=== PATIENT | female | born 1995 | race Caucasian/White ===

== ENCOUNTER 2018-05-28 11:00 | Outpatient (CLI) | payer MEDICAID ==
[2018-05-28] VITALS (9 sets, daily range): BP systolic 112–132; BP diastolic 60–72
[~2018-05-28] VITALS: Ht 156.2 cm; Wt 83.0 kg
--- NOTE | 2018-05-28 11:00 | NUR ---
VA LUCIA presented to unit via amulatory from home, accompanied by spouse, with c/o BACK PAIN AND ABD TIGHTENING. VA LUCIA weighed, gowned, voided, and to bed. EFHM and TOCO applied, VS taken. VA LUCIA oriented to bed controls, call light, TV, heat, and A/C controls.
[2018-05-28] MEDS ORDERED: PREN1TAB79 PO (11:20)
--- NOTE | 2018-05-28 11:30 | NUR ---
REPORT GIVEN TO DR MOORE AT THIS TIME. PT CO, SVE, NEGATIVE NITRAZINE, NO FLUID NOTED. PT REPORTS RASH ALL OVER BODY. PT STATES COULD BE ACNE-SHE HAS HX OF ACNE BREAKOUTS SIMILAR TO THIS. PT STATES SHE HAS HAD BV WHICH HAD BEEN TREATED. URINE DIP RESULTS. ORDERS RECEIVED TO START IV AND GIVE 1 L LR AT THIS TIME.
[2018-05-28] MEDS ORDERED: LACTATED RINGERS 1,000 ML IV SCH ×2 (12:00→13:45)
[2018-05-28] MEDS ORDERED: FLU QUADRIvalent (5+ YOA) 2018-2019 (AFLURIA) 0.5 ML IM ONE (12:15)
--- NOTE | 2018-05-28 13:15 | NUR ---
Report received from LYDIA Hammond. care assumed of pt.
--- NOTE | 2018-05-28 13:29 | NUR ---
was called with pt status update. new orders received.
--- NOTE | 2018-05-28 13:38 | NUR ---
2nd bag of LR infusing per Dr's orders. pt reports decrease in pain "with sitting up". pt sitting in low fowlers position. offered IV pain medication, refused @ time. pt smiling and talking with s/o. will cont to monitor.
[2018-05-28] MEDS ORDERED: fentaNYL INJECTION 100 MCG/2 ML AMP IVP SCH (13:45)
--- NOTE | 2018-05-28 14:47 | NUR ---
was called with SVE and monitor tracing update. will cont to monitor until 1800, recheck & call MD with update.
--- NOTE | 2018-05-28 17:32 | NUR ---
SVE per this RN. no change from previous exams.
--- NOTE | 2018-05-28 17:34 | NUR ---
was called. no answer on cell phone. voice mail left.
--- NOTE | 2018-05-28 17:38 | NUR ---
returned phone call. update given r/t pt's c/o's "pain in hip joints. feels like a knife is in my ball socket being twisted." new orders received.,
[2018-05-28] MEDS ORDERED: TERBUTALINE INJ 1 MG/ML (BRETHINE) AMP ONE (17:41)
[2018-05-28] MEDS ORDERED: TERBUTALINE INJ 1 MG/ML (BRETHINE) AMP SC ONE (17:45)
--- NOTE | 2018-05-28 17:45 | NUR ---
Brethine 0.25mg SQ given in Rt.arm. POC reviewed.
--- NOTE | 2018-05-28 18:34 | NUR ---
eating regular diet. s/o @ side.
--- NOTE | 2018-05-28 18:55 | NUR ---
was called. reviewed monitor tracing. dismissal orders received.
--- NOTE | 2018-05-28 19:08 | NUR ---
dismissal instructions given and verbalizes understanding. instructed to increased daily water intake. follow up with as scheduled. signature page signed, placed on chart. pt ambulated to private vehicle with s/o @ side.
== END 2018-05-28 19:08 | disposition home or self-care (01) ==
LOC: WSo 11:00 → LDRP 11:00 → WSo 19:08
PROVIDERS: ATTEND Family Medicine
DX: O99.89 Other specified diseases and conditions complicating pregnancy, childbirth and the puerperium (principal); M54.9 Dorsalgia, unspecified; Z3A.37 37 weeks gestation of pregnancy
CPT/HCPCS: 96361; 96372; 96374; 99214

== ENCOUNTER 2018-05-29 10:17 | Observation (INO) | payer MEDICAID ==
[~2018-05-29] VITALS: Ht 156.2 cm; Wt 83.9 kg
--- NOTE | 2018-05-29 10:12 | NUR ---
VA LUCIA presented to unit via AMBULATION from HOME, accompanied by S.O., with c/o CONTRACTION. VA LUCIA weighed, gowned, voided, and to bed. EFHM and TOCO applied, VS taken. VA LUCIA oriented to bed controls, call light, TV, heat, and A/C controls.
[~2018-05-29 10:17] MED LIST: PREN1TAB79 PO
[2018-05-29 10:25] VITALS: BP 121/73
[2018-05-29 10:51] LABS: BILIRUBIN,URINE NEGATIVE (NEGATIVE); CLARITY,URINE SLIGHTLY CLOUDY; COLOR,URINE YELLOW; GLUCOSE, URINE (UA) NEGATIVE (NEGATIVE); KETONES,URINE 2+ (NEGATIVE); LEUKOCYTE ESTERASE ,URINE NEGATIVE (NEGATIVE); NITRITE,URINE NEGATIVE (NEGATIVE); PH,URINE 6 (5-9); PROTEIN,URINE NEGATIVE (NEGATIVE); UROBILINOGEN,URINE NORMAL (NORMAL)
[2018-05-29 11:09] LABS: BACTERIA,URINE FEW /HPF; WBC,URINE 0-2 /HPF
--- NOTE | 2018-05-29 11:26 | NUR ---
DR. MOORE CALLED AND NOTIFIED OF PT ARRIVAL. NOTIFIED OF PT C/O CONT. CTX, CTX PATTERN, FHR, SVE, NITRAZINE SWAB, VAGINAL DISCHARGE, PT C/O VAGINAL BURNING AND ITCHING, OTHER ASSESSMENT FINDINGS. ORDERS REC'D.
[2018-05-29] MEDS ORDERED: NS IV 1000 ML 1,000 ML IV ONE (11:30)
[2018-05-29 12:50] LABS: BASOPHILS % (AUTO) 0 % (0-10); EOSINOPHILS # (AUTO) 0.1 10^3/uL (0.0-0.3); EOSINOPHILS % (AUTO) 2 % (0-10); HEMATOCRIT 34 % (35-52); HEMOGLOBIN 11.2 G/DL (11.5-16.0); LYMPHOCYTES % (AUTO) 30 % (12-44); MEAN CORPUSCULAR HEMOGLOBIN 30 PG (25-34); MEAN CORPUSCULAR HGB CONC 33 G/DL (32-36); MEAN CORPUSCULAR VOLUME 89 FL (80-99); MEAN PLATELET VOLUME 10.7 FL (7.4-10.4); MONOCYTES # (AUTO) 0.6 X 10^3 (0.0-1.0); MONOCYTES % (AUTO) 9 % (0-12); NEUTROPHILS % (AUTO) 59 % (42-75); PLATELET COUNT 217 10^3/uL (130-400); RED CELL DISTRIBUTION WIDTH 13.2 % (10.0-14.5); WHITE BLOOD COUNT 6.8 10^3/uL (4.3-11.0)
[2018-05-29 13:07] LABS: ALANINE AMINOTRANSFERASE 10 U/L (0-55); ALBUMIN 2.7 GM/DL (3.2-4.5); ALKALINE PHOSPHATASE 125 U/L (40-136); BILIRUBIN,TOTAL 0.3 MG/DL (0.1-1.0); BUN/CREATININE RATIO 6; CALCIUM 8.7 MG/DL (8.5-10.1); CARBON DIOXIDE 21 MMOL/L (21-32); CHLORIDE 109 MMOL/L (98-107); CREATININE SERUM 0.63 MG/DL (0.60-1.30); GFR ESTIMATED > 60; GLUCOSE 76 MG/DL (70-105); POTASSIUM 3.6 MMOL/L (3.6-5.0); SODIUM 139 MMOL/L (135-145); TOTAL PROTEIN 5.4 GM/DL (6.4-8.2)
--- NOTE | 2018-05-29 13:33 | NUR ---
Dr. Luna called and notified of lab results. Order for BPP, maintenance fluids.
[2018-05-29] MEDS ORDERED: NS IV 1000 ML 1,000 ML ONE (13:52)
[2018-05-29] MEDS: NS IV 1000 ML 1,000 ML IV SCH ×2 (13:55→22:51)
[2018-05-29 14:00] VITALS: BP 115/63
--- NOTE | 2018-05-29 14:00 | NUR ---
Dr. Luna on unit, visualizing FHR strip.
[2018-05-29] MEDS ORDERED: FLU QUADRIvalent (5+ YOA) 2018-2019 (AFLURIA) 0.5 ML IM ONE (16:45)
--- NOTE | 2018-05-29 16:50 | Diagnostic Imaging Report ---
INDICATION: Nonreactive stress test. Palacio gestation receives a normal 8 out of 8 biophysical profile. Positioning is cephalic. The placenta anterior with no abruption or previa. The amniotic fluid index is 7.6 with the largest vertical pocket of fluid measuring 3.4. IMPRESSION: 8 out of 8 biophysical profile. Dictated by: Dictated on workstation # [id number]
--- NOTE | 2018-05-29 17:45 | NUR ---
REPORT RECEIVED FORM Dennis SCHUMACHER RN. Addendum: 05/29/18 at 1846 by STEVEN CHEEMA RN FROM [facility]
--- NOTE | 2018-05-29 17:59 | NUR ---
EFM REAPPLIED AFTER SHOWER. STATES FEELING MUCH BETTER THAN YESTERDAY.
--- NOTE | 2018-05-29 19:00 | NUR ---
WATCHING TV. SPOUSE AT BEDSIDE.
[2018-05-29 19:25] VITALS: BP 107/70
[2018-05-29 21:30] VITALS: BP 111/64
[2018-05-30] VITALS: BP 115/59
[2018-05-30] MEDS ORDERED: ONDANSETRON 4 MG/2 ML (SDV) Z0FRAN IVP ONE (02:15)
[2018-05-30 02:30] VITALS: BP 109/62
[2018-05-30] MEDS: NS IV 1000 ML 1,000 ML IV SCH (06:52)
[2018-05-30 06:56] VITALS: BP 100/58
--- NOTE | 2018-05-30 07:40 | NUR ---
patient assisted up to bathroom. no s/s of distress. denies pain. Addendum: 05/30/18 at 0908 by CARLEY YOO RN wrong patient
--- NOTE | 2018-05-30 07:55 | NUR ---
at bedside. reviewing plan for d/c and home care.
[2018-05-30 08:09] VITALS: BP 114/62
--- NOTE | 2018-05-30 08:18 | History & Physical-OB ---
OB - Chief Complaint & HPI Date/Time Date of Admission: Date of Admission: May 29, 2018 at 15:30 Date seen by a Provider: May 30, 2018 Time Seen by a Provider: 08:14 Chief Complaint/History OB-Reason for Admission/Chief: contractions without cervical change Hx : 1 Expected Date of Delivery: Jun 27, 2018 Gestational Age in Weeks: 35 Gestational Age in Days: 6 Allergies and Home Medications Allergies Coded Allergies: No Known Drug Allergies (Unverified , 05/28/18) Home Medications Vit W-Ca,Fe,FA(<1 mg) 1 Each Tablet, 1 EACH PO DAILY, (Reported) Patient Home Medication List Home Medication List Reviewed: Yes OB - History Hx of Present Care: Yes Ultrasounds: Normal mid trimester US Obstetrical Complications: None Medical Complications: None Obstetrical History Hx : 1 Patient Past Medical History previously healthy Social History/Family History Recent Infectious Disease Expo: No OB - Admission Exam Physical Exam Vitals: Vital Signs 05/29/18 05/30/18 10:25 06:56 Temp 98.3 Pulse 86 Resp 18 B/P (MAP) 100/58 (72) Pulse Ox 98 O2 Delivery Room Air HEENT: NCAT Abdomen: Gravid Extremities: Edema Reflexes: Normal Cervical Dilatation: 1cm Heart Rate: 140's Accelerations: Accelerations Present Decelerations: No Decelerations Short Term Variability: Present Engine Inspector Variability: Average (6-25) Contractions on Admission: < 5 Minutes Apart Labs Laboratory Tests Test 05/29/18 10:30 05/29/18 12:23 Range/Units Urine Color YELLOW Urine Clarity SLIGHTLY CLOUDY Urine pH 6 5-9 Urine Specific [place] 1.020 1.016-1.022 Urine Protein NEGATIVE NEGATIVE Urine Glucose (UA) NEGATIVE NEGATIVE Urine Ketones 2+ H NEGATIVE Urine Nitrite NEGATIVE NEGATIVE Urine Bilirubin NEGATIVE NEGATIVE Urine Urobilinogen NORMAL NORMAL MG/DL Urine Leukocyte Esterase NEGATIVE NEGATIVE Urine RBC (Auto) NEGATIVE NEGATIVE Urine RBC NONE /HPF Urine WBC 0-2 /HPF Urine Squamous Epithelial Cells 2-5 /HPF Urine Crystals NONE /LPF Urine Bacteria FEW H /HPF Urine Casts NONE /LPF Urine Mucus SMALL H /LPF Urine Culture Indicated NO White Blood Count 6.8 4.3-11.0 10^3/uL Red Blood Count 3.77 L 4.35-5.85 10^6/uL Hemoglobin 11.2 L 11.5-16.0 G/DL Hematocrit 34 L 35-52 % Mean Corpuscular Volume 89 80-99 FL Mean Corpuscular Hemoglobin 30 25-34 PG Mean Corpuscular Hemoglobin Concent 33 32-36 G/DL Red Cell Distribution Width 13.2 10.0-14.5 % Platelet Count 217 130-400 10^3/uL Mean Platelet Volume 10.7 H 7.4-10.4 FL Neutrophils (%) (Auto) 59 42-75 % Lymphocytes (%) (Auto) 30 12-44 % Monocytes (%) (Auto) 9 0-12 % Eosinophils (%) (Auto) 2 0-10 % Basophils (%) (Auto) 0 0-10 % Neutrophils # (Auto) 4.0 1.8-7.8 X 10^3 Lymphocytes # (Auto) 2.0 1.0-4.0 X 10^3 Monocytes # (Auto) 0.6 0.0-1.0 X 10^3 Eosinophils # (Auto) 0.1 0.0-0.3 10^3/uL Basophils # (Auto) 0.0 0.0-0.1 10^3/uL Sodium Level 139 135-145 MMOL/L Potassium Level 3.6 3.6-5.0 MMOL/L Chloride Level 109 H 98-107 MMOL/L Carbon Dioxide Level 21 21-32 MMOL/L Anion Gap 9 5-14 MMOL/L Blood Urea Nitrogen 4 L 7-18 MG/DL Creatinine 0.63 0.60-1.30 MG/DL Estimat Glomerular Filtration Rate > 60 BUN/Creatinine Ratio 6 Glucose Level 76 70-105 MG/DL Calcium Level 8.7 8.5-10.1 MG/DL Corrected Calcium 9.7 8.5-10.1 MG/DL Total Bilirubin 0.3 0.1-1.0 MG/DL Aspartate Amino Transf (AST/SGOT) 14 5-34 U/L Alanine Aminotransferase (ALT/SGPT) 10 0-55 U/L Alkaline Phosphatase 125 40-136 U/L Total Protein 5.4 L 6.4-8.2 GM/DL Albumin 2.7 L 3.2-4.5 GM/DL OB - Assessment/Plan/Diagnosis Assessment Admission Dx Contractions without cervical change at 36 weeks gestational age. Admission Status: Observation Plan Plan: Other Other Plan Will let patient go home with good return labor precautions. BPP 10 yesterday. Not complaining of painful contractions this morning. Well hydrated. KATIUSKA ESPARZA MD May 30, 2018 08:18
--- NOTE | 2018-05-30 08:25 | NUR ---
patient sitting up eating breakfast. sono to bedside for ordered BBP. no s/s of distress noted. Addendum: 05/30/18 at 0907 by CARLEY YOO RN wrong patient
--- NOTE | 2018-05-30 09:05 | NUR ---
anahio complete assisted up to bathroom. Addendum: 05/30/18 at 0907 by CARLEY YOO RN wrong patient
--- NOTE | 2018-05-30 09:30 | NUR ---
ambulated out of WS with s/o to self care via private vehicle.
== END 2018-05-30 09:30 | disposition home or self-care (01) ==
LOC: WSo 10:17 → LDRP 10:19 → WSo 15:30 → LDRP 17:30
PROVIDERS: ADMIT Family Medicine; ATTEND Family Medicine
DX: O47.03 False labor before 37 completed weeks of gestation, third trimester (principal); Z3A.36 36 weeks gestation of pregnancy
CPT/HCPCS: 36415; 76819; 80053; 81000; 85025; 87210; 96361; 96374; 99211; G0378

== ENCOUNTER 2018-06-22 20:15 | Inpatient (IN) | payer MEDICAID ==
[~2018-06-22] VITALS: Ht 156.2 cm; Wt 84.5 kg
--- NOTE | 2018-06-22 20:07 | NUR ---
VA ULCIA presented to unit via from ED, accompanied by FOR INDUCTION. VA LUCIA weighed, gowned, voided, and to bed. EFHM and TOCO applied, VS taken. VA LUCIA oriented to bed controls, call light, TV, heat, and A/C controls.
[2018-06-22 20:30] VITALS: BP 127/84
[2018-06-22] MEDS ORDERED: LACTATED RINGERS 1,000 ML IV SCH (20:35)
[2018-06-22] MEDS ORDERED: MINERAL OIL CONCENTRATE 99.9% 15 ML UDC TOP PRN (20:45)
[2018-06-22 21:16] LABS: BASOPHILS % (AUTO) 0 % (0-10); EOSINOPHILS # (AUTO) 0.1 10^3/uL (0.0-0.3); EOSINOPHILS % (AUTO) 2 % (0-10); HEMATOCRIT 35 % (35-52); LYMPHOCYTES # (AUTO) 2.1 X 10^3 (1.0-4.0); LYMPHOCYTES % (AUTO) 24 % (12-44); MEAN CORPUSCULAR HEMOGLOBIN 30 PG (25-34); MEAN CORPUSCULAR HGB CONC 35 G/DL (32-36); MEAN CORPUSCULAR VOLUME 88 FL (80-99); MEAN PLATELET VOLUME 10.9 FL (7.4-10.4); MONOCYTES # (AUTO) 0.6 X 10^3 (0.0-1.0); MONOCYTES % (AUTO) 8 % (0-12); NEUTROPHILS # (AUTO) 5.6 X 10^3 (1.8-7.8); NEUTROPHILS % (AUTO) 66 % (42-75); PLATELET COUNT 218 10^3/uL (130-400); RED CELL DISTRIBUTION WIDTH 13.2 % (10.0-14.5); WHITE BLOOD COUNT 8.5 10^3/uL (4.3-11.0)
[2018-06-22 21:17] LABS: BILIRUBIN,URINE NEGATIVE (NEGATIVE); CLARITY,URINE CLEAR; COLOR,URINE YELLOW; GLUCOSE, URINE (UA) NEGATIVE (NEGATIVE); KETONES,URINE 1+ (NEGATIVE); LEUKOCYTE ESTERASE ,URINE 1+ (NEGATIVE); NITRITE,URINE NEGATIVE (NEGATIVE); PH,URINE 5 (5-9); PROTEIN,URINE 2+ (NEGATIVE); UROBILINOGEN,URINE 1 MG/DL (NORMAL)
[2018-06-22 21:30] LABS: BACTERIA,URINE MODERATE /HPF; HYALINE CASTS, URINE 0-2 /LPF; RBC,URINE RARE /HPF; SQUAMOUS EPITHELIAL CELL,UR 0-2 /HPF
[2018-06-22] MEDS: D5 LR IV SOLUTION 1,000 ML IV SCH (21:45)
[2018-06-22] MEDS: MISOPROSTOL 100 MCG (CYTOTEC) TAB PV SCH (21:50)
[2018-06-22] MEDS ORDERED: CATHETER FLUSH 10 ML SYR IV SCH (22:00)
[2018-06-22 23:00] VITALS: BP 120/62
[2018-06-23] VITALS (63 sets, daily range): BP systolic 90–155; BP diastolic 56–100
[2018-06-23] MEDS: MISOPROSTOL 100 MCG (CYTOTEC) TAB PV SCH ×2 (02:45→04:00)
[2018-06-23] MEDS: D5 LR IV SOLUTION 1,000 ML IV SCH ×2 (05:55→13:47)
[2018-06-23] MEDS ORDERED: OXYTOCIN/NORMAL SALINE 500 ML IV SCH ×2 (07:00→17:33)
[2018-06-23] MEDS ORDERED: OXYTOCIN/NORMAL SALINE 500 ML IV ONE (07:23)
[2018-06-23] MEDS ORDERED: SUFENTA 0.6MCG/ML BUPIVA 0.125 100 ML ONE (08:30)
--- NOTE | 2018-06-23 09:00 | NUR ---
PT STATES SHE HAD HER TDAP VACCINE.
[2018-06-23] MEDS ORDERED: BUPIVACAINE 0.25% 30 ML (SENSORCAINE) VIAL ONE (10:04)
[2018-06-23] MEDS ORDERED: LIDOCAINE PF 2% 5 ML (XYLOCAINE) VIAL ONE (10:04)
[2018-06-23] MEDS ORDERED: fentaNYL INJECTION 100 MCG/2 ML AMP ONE (10:04)
--- NOTE | 2018-06-23 10:30 | NUR ---
Dr. MACIAS here for epidural placement. Procedure explained, consent reviewed and signed by anesthesia. Questions answered to patient's satisfaction. Time out taken to verify correct patient/procedure. Patient up to side of bed, assisted into sitting position. 1013 Betadine prep done x3 and sterile drape applied. 1017 Local done, see anesthesia record. 1024 Test dose given, see anesthesia record for drug and dosage. Epidural catheter secured in place. Epidural placement complete. 1028Assisted back into bed, monitors adjusted. Epidural dosed, see anesthesia record. 1030 Epidural of Sufenta/Bupvicaine @12cc/hr stated per pump. Patient tolerated procedure well.
[2018-06-23] MEDS ORDERED: LACTATED RINGERS 1,000 ML IV ONE (10:41)
[2018-06-23] MEDS ORDERED: CATHETER FLUSH 10 ML SYR IV PRN (10:45)
[2018-06-23] MEDS ORDERED: ONDANSETRON 4 MG/2 ML (SDV) Z0FRAN IV PRN (10:45)
[2018-06-23] MEDS ORDERED: EPIDURAL (SUFENTA 0.6MCG/ML BUPIVA 0.125%) 100 ML BAG EPI SCH (10:45)
[2018-06-23] MEDS ORDERED: diphenhydrAMINE 50 MG/ML INJ (BENADRYL) IV PRN (10:45)
[2018-06-23] MEDS ORDERED: NALOXONE 0.4 MG/ML 1 ML (NARCAN) VIAL IV PRN (10:45)
--- NOTE | 2018-06-23 13:07 | History & Physical-OB ---
OB - Chief Complaint & HPI Date/Time Date of Admission: Date of Admission: Jun 22, 2018 at 20:15 Date seen by a Provider: Jun 23, 2018 Time Seen by a Provider: 08:00 Chief Complaint/History OB-Reason for Admission/Chief: Induction of Labor Hx : 1 Hx Para: 0 Expected Date of Delivery: Jun 28, 2018 Gestational Age in Weeks: 39 Gestational Age in Days: 2 Indication for induction: maternal discomfort Admission Nurse Assessment Rev: Yes Allergies and Home Medications Allergies Coded Allergies: No Known Drug Allergies (Unverified , 05/28/18) Home Medications Vit W-Ca,Fe,FA(<1 mg) 1 Each Tablet, 1 EACH PO DAILY, (Reported) Patient Home Medication List Home Medication List Reviewed: Yes OB - History Hx of Present Care: Yes Ultrasounds: Normal mid trimester US Obstetrical Complications: None Medical Complications: None Delivery History Adverse Rxn to Tranfusion: No Patient Past Medical History previously healthy Social History/Family History HIV/AIDS: No Sexually Transmitted Disease: No Alcohol Use: Denies Use Recreational Drug Use: No OB - Admission Exam Physical Exam Vitals: Vital Signs 06/23/18 06/23/18 08:03 09:00 Temp 99.3 Pulse 84 Resp 20 B/P (MAP) 149/100 (116) Pulse Ox 99 O2 Delivery Room Air HEENT: NCAT Heart: Rhythm Normal Lungs: Clear Abdomen: Gravid Extremities: Normal Reflexes: Normal Cervical Dilatation: 2cm Effacement: 75% Station: -2 Membranes: Ruptured Amniotic Fluid: Clear Heart Rate: 130's Accelerations: Accelerations Present Decelerations: No Decelerations Short Term Variability: Present Medical Sales Representative Variability: Average (6-25) Contractions on Admission: < 5 Minutes Apart Intensity: Moderate Labs Laboratory Tests Test 06/22/18 20:50 Range/Units White Blood Count 8.5 4.3-11.0 10^3/uL Red Blood Count 3.97 L 4.35-5.85 10^6/uL Hemoglobin 12.0 11.5-16.0 G/DL Hematocrit 35 35-52 % Mean Corpuscular Volume 88 80-99 FL Mean Corpuscular Hemoglobin 30 25-34 PG Mean Corpuscular Hemoglobin Concent 35 32-36 G/DL Red Cell Distribution Width 13.2 10.0-14.5 % Platelet Count 218 130-400 10^3/uL Mean Platelet Volume 10.9 H 7.4-10.4 FL Neutrophils (%) (Auto) 66 42-75 % Lymphocytes (%) (Auto) 24 12-44 % Monocytes (%) (Auto) 8 0-12 % Eosinophils (%) (Auto) 2 0-10 % Basophils (%) (Auto) 0 0-10 % Neutrophils # (Auto) 5.6 1.8-7.8 X 10^3 Lymphocytes # (Auto) 2.1 1.0-4.0 X 10^3 Monocytes # (Auto) 0.6 0.0-1.0 X 10^3 Eosinophils # (Auto) 0.1 0.0-0.3 10^3/uL Basophils # (Auto) 0.0 0.0-0.1 10^3/uL Urine Color YELLOW Urine Clarity CLEAR Urine pH 5 5-9 Urine Specific [place] 1.030 H 1.016-1.022 Urine Protein 2+ H NEGATIVE Urine Glucose (UA) NEGATIVE NEGATIVE Urine Ketones 1+ H NEGATIVE Urine Nitrite NEGATIVE NEGATIVE Urine Bilirubin NEGATIVE NEGATIVE Urine Urobilinogen 1 NORMAL MG/DL Urine Leukocyte Esterase 1+ H NEGATIVE Urine RBC (Auto) NEGATIVE NEGATIVE Urine RBC RARE /HPF Urine WBC 5-10 H /HPF Urine Squamous Epithelial Cells 0-2 /HPF Urine Crystals NONE /LPF Urine Bacteria MODERATE H /HPF Urine Casts PRESENT /LPF Urine Hyaline Casts 0-2 H /LPF Urine Mucus MODERATE H /LPF Urine Culture Indicated YES OB - Assessment/Plan/Diagnosis Assessment Assessment: induction of labor Admission Dx Induction of labor at 39 2/7 wga Admission Status: Inpatient Order (span 2 midnights) Reason for Inpatient Admission: Induction of labor. Plan Plan: Induction Induction Method: per Misoprostol Protocol Other Plan Cytotec twice vaginally overnight. Pitocin started this morning. AROM at 0800. Clear. Epidural when desired. Copy Copies To 1: KATIUSKA ESPARZA MD, KATRINA M MD Jun 23, 2018 13:07
[2018-06-23] MEDS ORDERED: LIDOCAINE 1% INJ 20 ML 20 ML VIAL ONE (16:23)
[2018-06-23] MEDS ORDERED: LIDOCAINE/EPI 2% 1:200,00 (XYLOCAINE) 10 ML VIAL ONE (16:23)
--- NOTE | 2018-06-23 17:23 | OB Labor & Delivery Record ---
Vag Delivery Note Vag Delivery Note Date of Delivery: 06/23/18 Preoperative Diagnosis: Dickson Johnson is a (22 /Para 1 / 0, Gestational Age (wks)39with [] Postoperative Diagnosis: Same Surgeon: KATIUSKA ESPARZA Environmental Science Professor: [none] Anesthesia: [epidural] Delivery Type: [] Findings: [] Viable [female] infant, apgars [8/9], weight [7 pounds 0 ounces] Lacerations: none Intact placenta with 3 vessel cord. No nuchal cord, body cord or shoulder dystocia Estimated Blood Loss: [250] ml Complications: None Condition: Stable Description of Procedure: The patient is a 22 year old female who presented [for induction]. She was admitted and informed consent was obtained. Her labor course was remarkable for [nothing] She progressed to complete dilatation and began to push. She was then set up for delivery. The 's head was delivered atraumatically in the [OA] position. The shoulders and remainder of the ' s body were then delivered without difficulty. The cord was doubly clamped and cut after 60 seconds and infant was placed on mother's abdomen. An intact placenta with 3-vessel cord delivered via [place] and there was found to be minimal bleeding.~ Vigorous fundal massage was performed and the fundus was found to be firm. IV oxytocin was given. Examination of the vagina and perineum revealed no lacerations. Following the repair, sponge, instrument and needle counts were correct. Mom and baby were both in stable condition in the labor suite. Vitals - Labs Vital Signs - I&O Vital Signs Date Time Temp Pulse Resp B/P (MAP) Pulse Ox O2 Delivery O2 Flow Rate FiO2 06/23/18 09:30 92 20 155/94 (114) Room Air 06/23/18 09:15 92 20 155/94 (114) Room Air 06/23/18 09:00 84 20 149/100 (116) Room Air 06/23/18 08:45 78 18 135/87 (103) Room Air 06/23/18 08:30 90 18 140/96 (111) Room Air 06/23/18 08:17 75 18 137/91 (106) Room Air 06/23/18 08:03 99.3 81 18 126/78 (94) 99 Room Air 06/23/18 03:15 98.5 90 18 126/78 (94) 06/22/18 23:00 79 18 120/62 (81) 06/22/18 20:30 99.2 99 18 127/84 (98) I & O 06/23/18 07:00 Intake Total 1000 ml Balance 1000 ml Labs Laboratory Tests 06/22/18 20:50: White Blood Count 8.5, Red Blood Count 3.97L, Hemoglobin 12.0, Hematocrit 35, Mean Corpuscular Volume 88, Mean Corpuscular Hemoglobin 30, Mean Corpuscular Hemoglobin Concent 35, Red Cell Distribution Width 13.2, Platelet Count 218, Mean Platelet Volume 10.9H, Neutrophils (%) (Auto) 66, Lymphocytes (%) (Auto) 24 , Monocytes (%) (Auto) 8, Eosinophils (%) (Auto) 2, Basophils (%) (Auto) 0, Neutrophils # (Auto) 5.6, Lymphocytes # (Auto) 2.1, Monocytes # (Auto) 0.6, Eosinophils # (Auto) 0.1, Basophils # (Auto) 0.0, Urine Color YELLOW, Urine Clarity CLEAR, Urine pH 5, Urine Specific [place] 1.030H, Urine Protein 2+H, Urine Glucose (UA) NEGATIVE, Urine Ketones 1+H, Urine Nitrite NEGATIVE, Urine Bilirubin NEGATIVE, Urine Urobilinogen 1, Urine Leukocyte Esterase 1+H, Urine RBC (Auto) NEGATIVE, Urine RBC RARE, Urine WBC 5-10H, Urine Squamous Epithelial Cells 0-2, Urine Crystals NONE, Urine Bacteria MODERATEH, Urine Casts PRESENT, Urine Hyaline Casts 0-2H, Urine Mucus MODERATEH, Urine Culture Indicated YES Microbiology 06/22/18 Urine Culture - Final, Complete See Report KATIUSKA ESPARZA MD Jun 23, 2018 17:23
[2018-06-23] MEDS ORDERED: WITCH HAZEL(TUCKS) 40 EA JAR TOP PRN (17:45)
[2018-06-23] MEDS ORDERED: MEASLES,MUMPS,RUBELLA 1 EA INJ SQ ONE (17:45)
[2018-06-23] MEDS ORDERED: BENZOCAINE/MENTHOL (DERMOPLAST) 56 ML CAN TP PRN (17:45)
[2018-06-23] MEDS ORDERED: TETANUS,DIPTH,PERTUSS P/F (BOOSTRIX) 0.5 ML VIAL IM ONE (17:45)
--- NOTE | 2018-06-23 17:45 | NUR ---
FAMILY AT BEDSIDE. FF U/2. VAG FLOW LT/MOD RUBRA. HOLDING INFANT. WANTS TO WAIT FOR MOTRIN UNTIL FAMILY BRINGS FOOD FOR PT.
--- NOTE | 2018-06-23 18:00 | NUR ---
VSS. FF U/1. BLADDER FILLING. VAG FLOW LT/MOD RUBRA. HOLDING . VISITORS AT BEDSIDE.
--- NOTE | 2018-06-23 18:15 | NUR ---
FUNDUS REMAINS FIRM AT U/1. VAG FLOW LT/MOD RUBRA. BLADDER FILLING.
--- NOTE | 2018-06-23 18:48 | NUR ---
UP TO THE BATHROOM. PT ABLE TO BEAR WEIGHT WELL. MOD GUSH OF BLOOD DOWN PT'S LEGS. VOIDED WITHOUT PROBLEMS. PERICARE PERFORMED WITH PAD/PANTIES APPLIED. GOWN CHANGE. BACK TO SIT IN BED. FAMILY COMING WITH FOOD FOR PT.FF U/1. VAG FLOW LT/MOD RUBRA.
[2018-06-23] MEDS: IBUPROFEN 600 MG (MOTRIN) TAB PO SCH (19:38)
[2018-06-23] MEDS ORDERED: FLU QUADRIvalent (5+ YOA) 2018-2019 (AFLURIA) 0.5 ML IM ONE (20:00)
--- NOTE | 2018-06-23 20:00 | NUR ---
Pt. moved to room. Pt oriented to bed controls and bathroom supplies. Pt. wants to be up and walking at this time. Vital signs taken. Pt. has no questions or concerns at this time.
[2018-06-23] MEDS ORDERED: CATHETER FLUSH 10 ML SYR IV SCH (22:00)
[2018-06-24] VITALS (7 sets, daily range): BP systolic 120–134; BP diastolic 71–90
[2018-06-24] MEDS: IBUPROFEN 600 MG (MOTRIN) TAB PO SCH ×4 (01:59→21:56)
[2018-06-24 05:58] LABS: BASOPHILS % (AUTO) 0 % (0-10); EOSINOPHILS # (AUTO) 0.1 10^3/uL (0.0-0.3); EOSINOPHILS % (AUTO) 1 % (0-10); HEMATOCRIT 32 % (35-52); HEMOGLOBIN 10.6 G/DL (11.5-16.0); LYMPHOCYTES # (AUTO) 1.5 X 10^3 (1.0-4.0); LYMPHOCYTES % (AUTO) 11 % (12-44); MEAN CORPUSCULAR HEMOGLOBIN 30 PG (25-34); MEAN CORPUSCULAR HGB CONC 33 G/DL (32-36); MEAN CORPUSCULAR VOLUME 90 FL (80-99); MEAN PLATELET VOLUME 10.8 FL (7.4-10.4); MONOCYTES # (AUTO) 0.8 X 10^3 (0.0-1.0); MONOCYTES % (AUTO) 6 % (0-12); NEUTROPHILS # (AUTO) 10.6 X 10^3 (1.8-7.8); NEUTROPHILS % (AUTO) 82 % (42-75); PLATELET COUNT 163 10^3/uL (130-400); RED CELL DISTRIBUTION WIDTH 13.1 % (10.0-14.5)
--- NOTE | 2018-06-24 08:56 | NUR ---
initial shift assessment completed, see interventions for further. POC reviewed, states understanding.
--- NOTE | 2018-06-24 16:22 | Progress Note (SOAP) ---
Subjective Subjective/Events-last exam Doing well, denies concerns. Bleeding is decreasing. No dizziness or shortness of breath. Review of Systems Date Seen by Provider: Jun 24, 2018 Time Seen by Provider: 09:15 Objective Exam Last Set of Vital Signs Vital Signs Date Time Temp Pulse Resp B/P (MAP) Pulse Ox O2 Delivery O2 Flow Rate FiO2 06/24/18 15:33 97.9 91 18 125/79 (94) 97 Room Air 06/23/18 17:00 15.00 Capillary Refill : I&O Intake and Output 06/24/18 00:00 Intake Total 7000 ml Output Total 550 ml Balance 6450 ml Intake Oral 1500 ml IV Total 5500 ml Output Urine Total 550 ml General: Alert, No Acute Distress Lungs: Clear to Auscultation, Normal Air Movement Heart: Regular Rate, No Murmurs Abdomen: Other (fundus firm below umbilicus) Extremities: No Edema Neuro: Normal Speech Psych/Mental Status: Mental Status NL Results/Procedures Lab Laboratory Tests 06/24/18 05:50: White Blood Count 13.0H, Red Blood Count 3.56L, Hemoglobin 10.6L, Hematocrit 32L , Mean Corpuscular Volume 90, Mean Corpuscular Hemoglobin 30, Mean Corpuscular Hemoglobin Concent 33, Red Cell Distribution Width 13.1, Platelet Count 163, Mean Platelet Volume 10.8H, Neutrophils (%) (Auto) 82H, Lymphocytes (%) (Auto) 11L, Monocytes (%) (Auto) 6, Eosinophils (%) (Auto) 1, Basophils (%) (Auto) 0, Neutrophils # (Auto) 10.6H, Lymphocytes # (Auto) 1.5, Monocytes # (Auto) 0.8, Eosinophils # (Auto) 0.1, Basophils # (Auto) 0.0 Microbiology 06/22/18 Urine Culture - Final, Complete See Report Assessment/Plan Assessment/Plan (1) Spontaneous vaginal delivery Status: Acute Assessment & Plan: Doing well, continue routine care (2) anemia Status: Acute Assessment & Plan: Asymptomatic, iron. Clinical Quality Measures DVT/VTE Risk/Contraindication: Risk Factor Score Per Nursin RFS Level Per Nursing on Admit: 1=Low/No VTE PPX NITIN MOORE MD Jun 24, 2018 16:22
--- NOTE | 2018-06-24 20:27 | NUR ---
PT SITTING UP IN BED. S/O AT BEDSIDE. ASSESSMENT COMPLETED. PT DENIES ANY NEEDS AT THIS TIME. WILL CONTINUE TO MONITOR.
[2018-06-25] MEDS: IBUPROFEN 600 MG (MOTRIN) TAB PO SCH ×2 (03:52→09:38)
[2018-06-25 04:00] VITALS: BP 123/86
[2018-06-25] MEDS ORDERED: FERROUS SULF 325 MG (IRON) TAB PO SCH (07:00)
[2018-06-25 09:37] VITALS: BP 116/75
[2018-06-25] MEDS ORDERED: WTCHGPD TOP (10:12)
[2018-06-25] MEDS ORDERED: Benzocaine/Menthol TP (10:12)
[2018-06-25] MEDS ORDERED: IBUP-844 PO (10:12)
--- NOTE | 2018-06-25 10:13 | Discharge Instructions ---
Discharge Inst-[facility] Depart Medications New, Converted or Re-Newed RX: Other (over the counter) New Medications: [Benzocaine/Menthol] () 56 ML AEROSOL 56 ML TP UD PRN for PAIN- SEE INSTRUCTIONS, #1 ML EXTERNAL USE ONLY Ibuprofen (Ibu) 600 Mg Tablet 600 MG PO Q6H PRN for CRAMPS, #90 TAB 0 Refills Witch Monik/Glycerin (A.e.r Pads) 40 Ea Pad 1 EA TOP UD PRN for PAIN- SEE INSTRUCTIONS, #1 PAD Continued Medications: Vit W-Ca,Fe,FA(<1 mg) ( Vitamins) 1 Each Tablet 1 EACH PO DAILY, TAB Follow Up/Instructions Goal/Follow Up: Follow up with Dr. Gordon in 6wk. Activity Activity: Activity as Tolerated Nothing Inside Vagina: No Douching, No [place], No Tampons Diet Discharge Diet: No Restrictions Symptoms to Report to : Pain Increased, Fever Over 101 Degrees F, Vaginal Bleeding Increase, Vaginal Discharge Foul, Questions/Concerns, Shortness of Breath For Any Problems or Questions: Contact Your Physician SINCERE DUNN DO Jun 25, 2018 10:13
--- NOTE | 2018-06-25 10:16 | Discharge Summary ---
Diagnosis/Chief Complaint Date of Admission Jun 22, 2018 at 20:15 Date of Discharge Admission Diagnosis Admission Diagnosis at 39w2d IOL Discharge Diagnosis see Problem List Problems/Diagnosis: (1) Spontaneous vaginal delivery Assessment & Plan: Doing well, continue routine care Status: Acute (2) anemia Assessment & Plan: Asymptomatic, iron. Status: Acute Discharge Summary-OBS Procedures None. Discharge Physical Examination Allergies: Coded Allergies: No Known Drug Allergies (Unverified , 05/28/18) Vitals & I&Os Vital Sign - Last 12Hours Date Time Temp Pulse Resp B/P (MAP) Pulse Ox O2 Delivery O2 Flow Rate FiO2 06/25/18 09:37 97.9 87 18 116/75 (89) 97 Room Air 06/23/18 17:00 15.00 General Appearance: Alert, Oriented X3, Cooperative Psych/Mental Status: Mood NL Hospital Course Routine care Labs Microbiology 06/22/18 Urine Culture - Final, Complete See Report Discharge Instructions to patient/family Please see electronic discharge instructions given to patient. Depart Medications New, Converted or Re-Newed RX: Other (over the counter) New Medications: [Benzocaine/Menthol] () 56 ML AEROSOL 56 ML TP UD PRN for PAIN- SEE INSTRUCTIONS, #1 ML EXTERNAL USE ONLY Ibuprofen (Ibu) 600 Mg Tablet 600 MG PO Q6H PRN for CRAMPS, #90 TAB 0 Refills Witch Monik/Glycerin (A.e.r Pads) 40 Ea Pad 1 EA TOP UD PRN for PAIN- SEE INSTRUCTIONS, #1 PAD Continued Medications: Vit W-Ca,Fe,FA(<1 mg) ( Vitamins) 1 Each Tablet 1 EACH PO DAILY, TAB Follow Up/Instructions Goal/Follow Up: Follow up with Dr. Esparza in 6wk. Activity Activity: Activity as Tolerated Nothing Inside Vagina: No Douching, No [place], No Tampons Diet Discharge Diet: No Restrictions Symptoms to Report to : Pain Increased, Fever Over 101 Degrees F, Vaginal Bleeding Increase, Vaginal Discharge Foul, Questions/Concerns, Shortness of Breath For Any Problems or Questions: Contact Your Physician Discharge Medications Reviewed and agree with Discharge Medication list on patient's Discharge Instruction sheet Clinical Quality Measures DVT/VTE Risk/Contraindication: Risk Factor Score Per Nursin RFS Level Per Nursing on Admit: 1=Low/No VTE PPX Copy Copies To 1: KATIUSKA ESPARZA MD, LINDA K DO Jun 25, 2018 10:16
--- NOTE | 2018-06-25 11:36 | NUR ---
Prescriptions called in to [facility]
--- NOTE | 2018-06-25 14:36 | NUR ---
Discharge instructions explained to pt with copy provided to pt. Pt notified of scripts at [facility]. Pt verbalizes understanding of instructions, signs to verify. Denies further needs or concerns at this time.
--- NOTE | 2018-06-25 15:30 | NUR ---
Pt ambulates off unit accompanied by RN, S.O., infant to to private vehicle. All personal belongings with pt. No s/s of distress noted.
== END 2018-06-25 15:30 | disposition home or self-care (01) | DRG 807 ==
LOC: LDRP 20:15
PROVIDERS: ADMIT Family Medicine; ATTEND Family Medicine
PROC: 10E0XZZ Delivery of Products of Conception, External Approach (ICD-10-PCS; principal; 2018-06-23)
PROC: 3E033VJ Introduction of Other Hormone into Peripheral Vein, Percutaneous Approach (ICD-10-PCS; 2018-06-23)
DX: O90.81 Anemia of the puerperium (principal); D64.9 Anemia, unspecified; Z37.0 Single live birth; Z3A.39 39 weeks gestation of pregnancy
CPT/HCPCS: 36415; 81000; 85025; 86850; 86900; 86901; 87088

== ENCOUNTER 2018-11-16 05:24 | Emergency (ER) | payer SELFPAY ==
[~2018-11-16] VITALS: Ht 156.2 cm; Wt 72.6 kg
[~2018-11-16 05:24] MED LIST changes: +Benzocaine/Menthol TP; +IBUP-844 PO; +WTCHGPD TOP
--- OUTSIDE RECORDS SUMMARY | 2018-11-16 05:29 | XMS REPORT | Continuity of Care Document ---
Author Organization Unknown Address Unknown Phone Unavailable Allergies There is no data. Medications There is no data. Problems There is no data. Procedures There is no data. Results There is no data. Encounters ACCT No. Visit Date/Time Discharge Status Pt. Type Provider Facility Loc./Unit Complaint [id number] 08/04/2018 10:45:00 08/04/2018 23:59:59 CLS Outpatient [facility]
--- OUTSIDE RECORDS SUMMARY | 2018-11-16 05:29 | XMS REPORT ---
Author Author KATIUSKA ESPARZA Organization [facility] Address [address] [place] [address] Care Team Providers Care Drapery Examiner Name Role Phone KATIUSKA ESPARZA Unavailable PROBLEMS Type Condition ICD9-CM Code [id number] Code Onset Dates Condition Status SNOMED Code Problem Supervision of normal first , antepartum V22.0 Nov, 0 075096602 Problem Supervision of normal first , antepartum Z34.00 Nov, 0 [id number] ALLERGIES No Known Allergies ENCOUNTERS Encounter Location Date Diagnosis [address] [address] Jul, [address] [address] Jun, [address] [address] Jun, Supervision of normal first in third trimester Z34.03 and 39 weeks gestation of Z3A.[address] [address] May, Irregular contractions O62.2 ; Supervision of normal first in third trimester Z34.03 and 38 weeks gestation of Z3A.[address] [address] May, Supervision of normal first in third trimester Z34.03 ; 37 weeks gestation of Z3A.37 and Irregular contractions O62.[address] [address] May, Supervision of normal first in third trimester Z34.03 and 36 weeks gestation of Z3A.[address] [address] 06 May, 2018 Supervision of normal first in third trimester Z34.03 and 35 weeks gestation of Z3A.35 [facility] [place] [address] [place] [address] Apr, [facility] [place] [address], [place] [address] Apr, [facility] [place] [address], [place] [address] Apr, [facility] [place] [address], [place] [address] Mar, [facility] [place] [address], [place] [address] Mar, [facility] [place] [address], [place] [address] Mar, [facility] [place] [address], [place] [address] Mar, IMMUNIZATIONS No Known Immunizations SOCIAL HISTORY Never Assessed REASON FOR VISIT 39 week OB PLAN OF CARE VITAL SIGNS Height 64.5 in 2018-06-22 Weight 186 lbs 2018-06-22 BMI 31.434 kg/m2 2018-06-22 Blood pressure systolic 133 mmHg 2018-06-22 Blood pressure diastolic 80 mmHg 2018-06-22 MEDICATIONS Medication Instructions Dosage Frequency Start Date End Date Duration Status HydrOXYzine HCl 25 MG Orally every 8 hrs 1 tablet as needed 8h 20 May, 2018 30 day(s) Active 28-0.8 MG Orally Once a day 1 tablet 24h 30 day(s) Active RESULTS No Results PROCEDURES No Known procedures INSTRUCTIONS MEDICATIONS ADMINISTERED No Known Medications MEDICAL (GENERAL) HISTORY Type Description Date Medical History denies
--- OUTSIDE RECORDS SUMMARY | 2018-11-16 05:29 | XMS REPORT ---
Author Author KATIUSKA ESPARZA Organization [facility] Address [address] [place] [address] Care Team Providers Care Supervisor [employer] Name Role Phone DARREL ESPARZAA Unavailable PROBLEMS Type Condition ICD9-CM Code VSW17-PF Code Onset Dates Condition Status SNOMED Code Problem Supervision of normal first , antepartum V22.0 Nov, 0 [id number] Problem Supervision of normal first , antepartum Z34.00 Nov, 0 [id number] ALLERGIES No Information ENCOUNTERS Encounter Location Date Diagnosis [address] [address] Jul, [address] [address] Jun, [address] [address] Jun, Supervision of normal first in third trimester Z34.03 and 39 weeks gestation of Z3A.[address] [address] May, Irregular contractions O62.2 ; Supervision of normal first in third trimester Z34.03 and 38 weeks gestation of Z3A.[address] [address] May, Supervision of normal first in third trimester Z34.03 ; 37 weeks gestation of Z3A.37 and Irregular contractions O62.[address] [address] May, Supervision of normal first in third trimester Z34.03 and 36 weeks gestation of Z3A.[address] [address] 06 May, 2018 Supervision of normal first in third trimester Z34.03 and 35 weeks gestation of Z3A.35 [facility] [address] [address] Apr, [facility] [address] [address] Apr, [facility] [address], [place] [address] Apr, [facility] [address], [place] [address] Mar, [facility] [address], [place] [address] Mar, [facility] [address] [place] [address] Mar, [facility] [address], [place] [address] Mar, IMMUNIZATIONS No Known Immunizations SOCIAL HISTORY Never Assessed REASON FOR VISIT Records PLAN OF CARE VITAL SIGNS MEDICATIONS Unknown Medications RESULTS No Results PROCEDURES No Known procedures INSTRUCTIONS MEDICATIONS ADMINISTERED No Known Medications MEDICAL (GENERAL) HISTORY Type Description Date Medical History denies
[2018-11-16] MEDS ORDERED: DICYCLOMINE 10 MG/ML (BENTYL) 2 ML AMP IM ONE (06:15)
[2018-11-16] MEDS ORDERED: ONDANSETRON 4 MG/2 ML (SDV) Z0FRAN IVP ONE (06:15)
[2018-11-16] MEDS ORDERED: NS IV 1000 ML 1,000 ML IV SCH (06:15)
--- NOTE | 2018-11-16 06:20 | ED GI ---
General Chief Complaint: Abdominal/GI Problems Stated Complaint: VOMITING Nursing Triage Note: PT. REPORTED SHE HAS HAD N/V/D FOR THE LAST 5 DAYS. PT. REPORTED SHE VOMITED AT LEAST 12 TO 15 TIMES. SHE REPORTED SHE HAS ABD. PAIN. Sepsis Screen: Possible Sepsis Risk Source of Information: Patient Exam Limitations: No Limitations History of Present Illness Date Seen by Provider: Nov 16, 2018 Time Seen by Provider: 06:00 Initial Comments The patient is a pleasant 23-year-old female who presents for evaluation of nausea, vomiting, and diarrhea over the last 5 days. She believes she has vomited approximately 15 times over the last 5 days. She reports generalized abdominal discomfort. Her and infant are present and are not having any symptoms. She denies any past surgical history. She denies fevers or chills, hematemesis, rectal bleeding, urinary complaints, pelvic pain/bleeding/discharge, back or flank pain, chest pain or shortness of breath, dizziness or syncope. She is alert and oriented 4, calm, and appears to be in no distress. She reports a decreased appetite. Timing/Duration: 5-6 Days Severity/Quality: Moderate Location: Generalized Abdomen Radiation: No Radiation Activities at Onset: None Associated Symptoms: Nausea/Vomiting Allergies and Home Medications Allergies Coded Allergies: No Known Drug Allergies (Unverified , 05/28/18) Home Medications Ibuprofen 600 Mg Tablet, 600 MG PO Q6H PRN for CRAMPS Prescribed by: SINCERE DUNN on 06/25/18 1012 Vit W-Ca,Fe,FA(<1 mg) 1 Each Tablet, 1 EACH PO DAILY, (Reported) Witch Monik/Glycerin 40 Ea Pad, 1 EA TOP UD PRN for PAIN- SEE INSTRUCTIONS Prescribed by: SINCERE DUNN on 06/25/18 1012 [Benzocaine/Menthol] 56 ML AEROSOL, 56 ML TP UD PRN for PAIN- SEE INSTRUCTIONS EXTERNAL USE ONLY Prescribed by: SINCERE DUNN on 06/25/18 1012 Patient Home Medication List Home Medication List Reviewed: Yes Review of Systems Review of Systems Constitutional: no symptoms reported EENTM: No Symptoms Reported Respiratory: No Symptoms Reported Cardiovascular: No Symptoms Reported Gastrointestinal: Abdominal Pain, Diarrhea, Nausea, Vomiting Genitourinary: No Symptoms Reported Musculoskeletal: no symptoms reported Skin: no symptoms reported Psychiatric/Neurological: No Symptoms Reported Endocrine: No Symptoms Reported Hematologic/Lymphatic: No Symptoms Reported All Other Systems Reviewed Negative Unless Noted: Yes Past Ltreagf-Qwxxmp-Aupuwe Hx Past Med/Social Hx: Reviewed Nursing Past Med/Soc Hx Patient Social History Recent Foreign Travel: No Contact w/Someone Who Travel: No Recent Infectious Disease Expo: No Recent Hopitalizations: No Physical Abuse: No Sexual Abuse: No Mistreated: No Fear: No Seasonal Allergies Seasonal Allergies: No Past Medical History Surgeries: No Respiratory: No Cardiac: No Neurological: No Female Reproductive Disorders: Denies Sexually Transmitted Disease: No HIV/AIDS: No Genitourinary: No Gastrointestinal: No Musculoskeletal: No Endocrine: No HEENT: No Cancer: No Psychosocial: No Integumentary: Yes Pruritis Blood Disorders: No Adverse Reaction/Blood Tranf: No Physical Exam Vital Signs Vital Signs - First Documented 11/16/18 05:36 Temp 99.1 Pulse 108 Resp 16 B/P (MAP) 147/97 (114) Pulse Ox 95 O2 Delivery Room Air Capillary Refill : Less Than 3 Seconds Height/Weight/BMI Height: 5'1.50" Weight: 160lbs. 3.0oz. 72.482363xd; 34.6 BMI Method:Stated General Appearance: WD/WN, no apparent distress HEENT: PERRL/EOMI, normal ENT inspection, TMs normal, pharynx normal Respiratory: chest non-tender, lungs clear, normal breath sounds, no r espiratory distress, no accessory muscle use Cardiovascular: regular rate, rhythm, no edema, no JVD, no murmur Gastrointestinal: normal bowel sounds, soft, no pulsatile mass, abnormal bowel sounds (hyperactive bowel sounds), tenderness (mild generalized tenderness, no focal tenderness, soft, no guarding, no rigidity, no distention) Extremities: normal range of motion, non-tender, normal inspection, no pedal edema 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, no motor/sensory deficits, alert, normal mood/affect, oriented x 3 Skin: warm/dry, pallor (mild pallor) Lymphatic: no adenopathy Progress/Results/Core Measures Results/Orders Lab Results Laboratory Tests Test 11/16/18 05:40 11/16/18 06:24 Range/Units White Blood Count 10.5 4.3-11.0 10^3/uL Red Blood Count 4.98 4.35-5.85 10^6/uL Hemoglobin 14.6 11.5-16.0 G/DL Hematocrit 43 35-52 % Mean Corpuscular Volume 86 80-99 FL Mean Corpuscular Hemoglobin 29 25-34 PG Mean Corpuscular Hemoglobin Concent 34 32-36 G/DL Red Cell Distribution Width 11.8 10.0-14.5 % Platelet Count 315 130-400 10^3/uL Mean Platelet Volume 10.0 7.4-10.4 FL Neutrophils (%) (Auto) 70 42-75 % Lymphocytes (%) (Auto) 22 12-44 % Monocytes (%) (Auto) 6 0-12 % Eosinophils (%) (Auto) 2 0-10 % Basophils (%) (Auto) 1 0-10 % Neutrophils # (Auto) 7.3 1.8-7.8 X 10^3 Lymphocytes # (Auto) 2.3 1.0-4.0 X 10^3 Monocytes # (Auto) 0.6 0.0-1.0 X 10^3 Eosinophils # (Auto) 0.2 0.0-0.3 10^3/uL Basophils # (Auto) 0.1 0.0-0.1 10^3/uL Sodium Level 139 135-145 MMOL/L Potassium Level 4.0 3.6-5.0 MMOL/L Chloride Level 95 L 98-107 MMOL/L Carbon Dioxide Level 26 21-32 MMOL/L Anion Gap 18 H 5-14 MMOL/L Blood Urea Nitrogen 15 7-18 MG/DL Creatinine 0.98 0.60-1.30 MG/DL Estimat Glomerular Filtration Rate > 60 BUN/Creatinine Ratio 15 Glucose Level 114 H 70-105 MG/DL Calcium Level 10.1 8.5-10.1 MG/DL Corrected Calcium 9.7 8.5-10.1 MG/DL Total Bilirubin 0.4 0.1-1.0 MG/DL Aspartate Amino Transf (AST/SGOT) 18 5-34 U/L Alanine Aminotransferase (ALT/SGPT) 28 0-55 U/L Alkaline Phosphatase 79 40-136 U/L Total Protein 8.4 H 6.4-8.2 GM/DL Albumin 4.5 3.2-4.5 GM/DL Amylase Level 56 25-125 U/L Lipase 17 8-78 U/L Urine Color YELLOW Urine Clarity CLEAR Urine pH 6.0 5-9 Urine Specific [place] 1.025 H 1.016-1.022 Urine Protein NEGATIVE NEGATIVE Urine Glucose (UA) NEGATIVE NEGATIVE Urine Ketones TRACE H NEGATIVE Urine Nitrite NEGATIVE NEGATIVE Urine Bilirubin NEGATIVE NEGATIVE Urine Urobilinogen 0.2 NORMAL MG/DL Urine Leukocyte Esterase NEGATIVE NEGATIVE Urine RBC (Auto) NEGATIVE NEGATIVE Urine RBC RARE /HPF Urine WBC 0-2 /HPF Urine Squamous Epithelial Cells 10-25 H /HPF Urine Crystals NONE /LPF Urine Bacteria TRACE /HPF Urine Casts NONE /LPF Urine Mucus NONE /LPF Urine Culture Indicated NO Urine Test NEGATIVE NEGATIVE My Orders Orders - CECILIA PICKERING DO Comprehensive Metabolic Panel (11/16/18 06:11) Lipase (11/16/18 06:11) Amylase (11/16/18 06:11) Ua Culture If Indicated (11/16/18 06:11) Ed Iv/Invasive Line Start (11/16/18 06:11) Cbc With Automated Diff (11/16/18 06:11) Ct Abdomen/Pelvis W (11/16/18 06:11) Ns Iv 1000 Ml (Sodium Chloride 0.9%) (11/16/18 06:15) Ondansetron Injection (Zofran Injectio (11/16/18 06:15) Dicyclomine Injection (Bentyl Injection) (11/16/18 06:15) Nothing By Mouth (11/16/18 Lunch) Hcg,Qualitative Urine (11/16/18 06:11) Iohexol Injection (Omnipaque 350 Mg/Ml 1 (11/16/18 06:45) Received Contrast (Hold Metformin- Contr (11/16/18 06:45) Sodium Chloride Flush (Catheter Flush Sy (11/16/18 06:45) Ns (Ivpb) (Sodium Chloride 0.9% Ivpb Bag (11/16/18 06:45) Medications Given in ED Current Medications Medications Dose Ordered Sig/Heidi Route Start Time Stop Time Status Last Admin Dose Admin Dicyclomine HCl 20 mg ONCE ONCE IM 11/16/18 06:15 11/16/18 06:16 DC 11/16/18 06:25 20 MG Iohexol 100 ml ONCE ONCE IV 11/16/18 06:45 11/16/18 06:46 DC 11/16/18 06:55 100 ML Ondansetron HCl 4 mg ONCE ONCE IVP 7/31/19 06:15 11/16/18 06:16 DC 11/16/18 06:30 4 MG Sodium Chloride 10 ml NEEDED PRN IV 11/16/18 06:45 11/16/18 06:55 10 ML Sodium Chloride 100 ml ONCE ONCE IV 11/16/18 06:45 11/16/18 06:46 DC 11/16/18 06:55 100 ML Vital Signs/I&O 11/16/18 05:36 Temp 99.1 Pulse 108 Resp 16 B/P (MAP) 147/97 (114) Pulse Ox 95 O2 Delivery Room Air Blood Pressure Mean: 114 Progress Progress Note : Progress Note @0740 - Patient and updated on lab and imaging results which show evidence of mesenteric adenitis but no other acute intra-abdominal pathology. The patient reports feeling much better in terms of her discomfort and nausea. She is asking to be discharged home at this time. She will go home with a prescription for Bentyl and Zofran. Today fails to reveal any emergent patholo gy. The patient is stable for discharge at this time. Advised her to follow up with her PCP in the next 1-2 days and to return to the emergency department immediately for any new or worsening symptoms. She expresses verbal understanding and agreement with the plan. Diagnostic Imaging Comments [facility], [place] NAME: [facility] REC#: [id number] PT STATUS: REG ER : 1995 PHYSICIAN: CECILIA PICKERING DO ADMIT DATE: 11/16/18/ER FS Draft Date of Exam:11/16/18 CT ABDOMEN/PELVIS W PROCEDURE: CT abdomen and pelvis with contrast. TECHNIQUE: Multiple contiguous axial images were obtained through the abdomen and pelvis after administration of intravenous contrast. Auto Exposure Controls were utilized during the CT exam to meet ALARA standards for radiation dose reduction. INDICATION: Nausea and vomiting. FINDINGS: The lung bases are clear. There is good opacification of the aorta and abdominal vessels and organs. Vessels appear normal. There is mild hepatomegaly with hepatic steatosis. Gallbladder and bile ducts are normal. Pancreas and spleen are normal. The adrenal glands are normal. The kidneys are normal. The stomach and small bowel are not distended. There is small amount of oral contrast present. There is very little stool within the colon with considerable spasm of the colon demonstrated. The appendix is normal. No evidence of diverticulitis. There are multiple subcentimeter lymph nodes throughout the mesenteric root and right lower quadrant. There is no free air or free fluid. The ovaries appear normal. No pelvic masses. No bony abnormalities. IMPRESSION: Long segment spasm of the colon with mesenteric adenitis. No finding to indicate appendicitis or diverticulitis. Dictated on workstation # [id number] Dict: 11/16/18710 Trans: 11/16/18722 [id number] Interpreted by: NICKY APODACA MD Electronically signed by: Departure Impression Primary Impression: Nausea and vomiting Additional Impressions: Diarrhea Mesenteric adenitis Disposition: 01 HOME, SELF-CARE Condition: Stable Departure-Patient Inst. Decision time for Depature: 07:40 Referrals: KATIUSKA ESPARZA MD (PCP/Family) Primary Care Physician Patient Instructions: Mesenteric Lymphadenitis (DC), Nausea and Vomiting, Adult (DC), Diarrhea in Adolescents and Adults Add. Discharge Instructions: Take the medication as prescribed, as needed. Return to the ER for new or worsening symptoms. Follow up with your PCP in 1-2 days. Drink plenty of water at home to stay well hydrated. Scripts Dicyclomine HCl (Dicyclomine HCl) 20 Mg Tablet 20 MG PO Q6H PRN for ABDOMINAL PAIN, #20 TAB Prov: CECILIA PICKERING DO 11/16/18 Ondansetron (Ondansetron Odt) 4 Mg Tab.rapdis 4 MG PO Q4H PRN for NAUSEA/VOMITING-1ST LINE, #20 TAB Prov: CECILIA PICKERING DO 11/16/18 CECILIA PICKERING DO Nov 16, 2018 06:20
[2018-11-16 06:21] LABS: HEMATOCRIT 43 % (35-52); HEMOGLOBIN 14.6 G/DL (11.5-16.0); MEAN CORPUSCULAR HEMOGLOBIN 29 PG (25-34); WHITE BLOOD COUNT 10.5 10^3/uL (4.3-11.0)
[2018-11-16 06:22] LABS: BASOPHILS % (AUTO) 1 % (0-10); EOSINOPHILS % (AUTO) 2 % (0-10); LYMPHOCYTES # (AUTO) 2.3 X 10^3 (1.0-4.0); LYMPHOCYTES % (AUTO) 22 % (12-44); MEAN CORPUSCULAR HGB CONC 34 G/DL (32-36); MEAN CORPUSCULAR VOLUME 86 FL (80-99); MONOCYTES # (AUTO) 0.6 X 10^3 (0.0-1.0); MONOCYTES % (AUTO) 6 % (0-12); NEUTROPHILS # (AUTO) 7.3 X 10^3 (1.8-7.8); NEUTROPHILS % (AUTO) 70 % (42-75); PLATELET COUNT 315 10^3/uL (130-400); RED CELL DISTRIBUTION WIDTH 11.8 % (10.0-14.5)
[2018-11-16 06:23] LABS: BASOPHILS # (AUTO) 0.1 10^3/uL (0.0-0.1); EOSINOPHILS # (AUTO) 0.2 10^3/uL (0.0-0.3)
[2018-11-16 06:40] LABS: BACTERIA,URINE TRACE /HPF; BILIRUBIN,URINE NEGATIVE (NEGATIVE); CLARITY,URINE CLEAR; COLOR,URINE YELLOW; GLUCOSE, URINE (UA) NEGATIVE (NEGATIVE); KETONES,URINE TRACE (NEGATIVE); LEUKOCYTE ESTERASE ,URINE NEGATIVE (NEGATIVE); NITRITE,URINE NEGATIVE (NEGATIVE); PROTEIN,URINE NEGATIVE (NEGATIVE); RBC,URINE RARE /HPF; UROBILINOGEN,URINE 0.2 MG/DL (NORMAL); WBC,URINE 0-2 /HPF
[2018-11-16 06:42] LABS: ALKALINE PHOSPHATASE 79 U/L (40-136); BILIRUBIN,TOTAL 0.4 MG/DL (0.1-1.0); BUN/CREATININE RATIO 15; CALCIUM 10.1 MG/DL (8.5-10.1); CARBON DIOXIDE 26 MMOL/L (21-32); CHLORIDE 95 MMOL/L (98-107); CREATININE SERUM 0.98 MG/DL (0.60-1.30); GFR ESTIMATED > 60; GLUCOSE 114 MG/DL (70-105); SODIUM 139 MMOL/L (135-145)
[2018-11-16 06:43] LABS: ALANINE AMINOTRANSFERASE 28 U/L (0-55); ALBUMIN 4.5 GM/DL (3.2-4.5); AMYLASE 56 U/L (25-125); LIPASE 17 U/L (8-78); TOTAL PROTEIN 8.4 GM/DL (6.4-8.2)
[2018-11-16] MEDS ORDERED: NS 100 ML (IVPB) BAG IV ONE (06:45)
[2018-11-16] MEDS ORDERED: HOLD METFORMIN - RECEIVED CONTRAST 20 ML VIAL IV SCH (06:45)
[2018-11-16] MEDS ORDERED: CATHETER FLUSH 10 ML SYR IV PRN (06:45)
[2018-11-16] MEDS ORDERED: IOHEXOL 350 MG/ML 100 ML (OMNIPAQUE 350) VIAL IV ONE (06:45)
--- NOTE | 2018-11-16 07:23 | Diagnostic Imaging Report ---
PROCEDURE: CT abdomen and pelvis with contrast. TECHNIQUE: Multiple contiguous axial images were obtained through the abdomen and pelvis after administration of intravenous contrast. Auto Exposure Controls were utilized during the CT exam to meet ALARA standards for radiation dose reduction. INDICATION: Nausea and vomiting. FINDINGS: The lung bases are clear. There is good opacification of the aorta and abdominal vessels and organs. Vessels appear normal. There is mild hepatomegaly with hepatic steatosis. Gallbladder and bile ducts are normal. Pancreas and spleen are normal. The adrenal glands are normal. The kidneys are normal. The stomach and small bowel are not distended. There is small amount of oral contrast present. There is very little stool within the colon with considerable spasm of the colon demonstrated. The appendix is normal. No evidence of diverticulitis. There are multiple subcentimeter lymph nodes throughout the mesenteric root and right lower quadrant. There is no free air or free fluid. The ovaries appear normal. No pelvic masses. No bony abnormalities. IMPRESSION: Long segment spasm of the colon with mesenteric adenitis. No finding to indicate appendicitis or diverticulitis. Dictated by: Dictated on workstation # [id number]
--- NOTE | 2018-11-16 07:30 | NUR ---
Patient resting on cart, awake and alert. Pt reports, "Feeling better." Pt has ambulated to bathroom to void.
[2018-11-16] MEDS ORDERED: DICY20TA10 PO (07:40)
[2018-11-16] MEDS ORDERED: ONDA4TAB11 PO (07:40)
--- NOTE | 2018-11-16 07:40 | NUR ---
Pt reports no stomach cramping since medicine earlier, minimal nausea. IV credit approximately 300 ml at this time. Update to Dr Ahumada.
--- NOTE | 2018-11-16 07:47 | NUR ---
Dr Blevins to room to discuss discharge planning.
[2018-11-16 07:54] VITALS: BP 138/87
== END 2018-11-16 07:54 | disposition home or self-care (01) ==
LOC: EDUNIT# 05:24 → ER FS 05:26
DX: I88.0 Nonspecific mesenteric lymphadenitis (principal); R19.7 Diarrhea, unspecified; R11.2 Nausea with vomiting, unspecified
CPT/HCPCS: 36415; 74177; 80053; 81000; 82150; 83690; 84703; 85025; 96372; 96374

== ENCOUNTER → 2020-02-05 | Outpatient (CLI) | payer SELFPAY ==
[~2020-02-05] MED LIST changes: +DICY20TA10 PO; +ONDA4TAB11 PO
[2020-02-05 17:31] LABS: WHITE BLOOD COUNT 10.2 10^3/uL (4.3-11.0)
[2020-02-05 17:32] LABS: BASOPHILS # (AUTO) 0.1 10^3/uL (0.0-0.1); BASOPHILS % (AUTO) 1 % (0-10); EOSINOPHILS # (AUTO) 0.2 10^3/uL (0.0-0.3); EOSINOPHILS % (AUTO) 2 % (0-10); HEMATOCRIT 38 % (35-52); HEMOGLOBIN 13.3 G/DL (11.5-16.0); LYMPHOCYTES # (AUTO) 2.6 X 10^3 (1.0-4.0); LYMPHOCYTES % (AUTO) 26 % (12-44); MEAN CORPUSCULAR HEMOGLOBIN 30 PG (25-34); MEAN CORPUSCULAR HGB CONC 35 G/DL (32-36); MEAN CORPUSCULAR VOLUME 86 FL (80-99); MEAN PLATELET VOLUME 10.4 FL (7.4-10.4); MONOCYTES # (AUTO) 0.6 X 10^3 (0.0-1.0); MONOCYTES % (AUTO) 6 % (0-12); NEUTROPHILS # (AUTO) 6.7 X 10^3 (1.8-7.8); NEUTROPHILS % (AUTO) 66 % (42-75); PLATELET COUNT 287 10^3/uL (130-400)
== END ==
LOC: LAB FS 15:46
PROVIDERS: ATTEND Family Medicine
DX: Z34.81 Encounter for supervision of other normal pregnancy, first trimester (principal); Z3A.00 Weeks of gestation of pregnancy not specified
CPT/HCPCS: 36415; 80055; 86703; 86762; 87088

== ENCOUNTER → 2020-04-01 | Outpatient (CLI) | payer SELFPAY | LOC: LAB FS 16:34 | PROVIDERS: ATTEND Family Medicine | DX: Z34.02 Encounter for supervision of normal first pregnancy, second trimester (principal); Z3A.00 Weeks of gestation of pregnancy not specified | CPT/HCPCS: 36415; 82105; 84702; 86336 ==

== ENCOUNTER 2022-08-22 22:34 | Outpatient (CLI) | payer MEDICAID ==
[~2022-08-22] VITALS: Ht 155 cm; Wt 84.1 kg
[~2022-08-22 22:34] MED LIST changes: +DICY20TA PO; -DICY20TA10 PO
[2022-08-22 22:55] VITALS: BP 115/68
[2022-08-22 22:59] LABS: BILIRUBIN,URINE NEGATIVE (NEGATIVE); CLARITY,URINE CLEAR; COLOR,URINE YELLOW; GLUCOSE, URINE (UA) NEGATIVE (NEGATIVE); KETONES,URINE NEGATIVE (NEGATIVE); LEUKOCYTE ESTERASE ,URINE 1+ (NEGATIVE); NITRITE,URINE NEGATIVE (NEGATIVE); PROTEIN,URINE NEGATIVE (NEGATIVE)
[2022-08-22 23:02] LABS: BACTERIA,URINE FEW /HPF; WBC,URINE 0-2 /HPF
[2022-08-22 23:03] LABS: SQUAMOUS EPITHELIAL CELL,UR 0-2 /HPF
--- NOTE | 2022-08-24 08:17 | Physician Query-Final Dx ---
08/24/22 0817: Clinic Account Progress/Dx Physician Query: Please give diagnosis Please include # weeks gestation Date of Service August 22, 2022 at 22:34 JEISON BARRETO DO 08/25/22 1116: Clinic Account Progress/Dx Physician Query: Please give diagnosis IUP@ 33wk cramping false labor Dehydration Date of Service 08/22/22 DIAGNOSIS: Diagnosis IUP@ 33wk cramping false labor Dehydration Progress Note: Patient was seen on L&D for cramping. Pt was active all day but did not drink much water FHR reassuring CVX closed (unchanged after 2hr) TOCOs irregular August 24, 2022 08:17 JEISON BARRETO DO August 25, 2022 11:16
== END 2022-08-23 01:18 ==
LOC: WSo 22:34 → LDRP 22:35 → WSo 08-23 01:18
PROVIDERS: ATTEND Obstetrics & Gynecology
DX: O62.9 Abnormality of forces of labor, unspecified (principal); Z3A.00 Weeks of gestation of pregnancy not specified
CPT/HCPCS: 81000; 87088; 99213

== ENCOUNTER 2022-08-26 19:41 | Outpatient (CLI) | payer MEDICAID ==
[~2022-08-26] VITALS: Ht 154.9 cm; Wt 82.1 kg
[2022-08-26 20:01] VITALS: BP 107/69
--- NOTE | 2022-08-27 08:34 | Physician Query-Final Dx ---
08/27/22 0834: Clinic Account Progress/Dx Physician Query: Please give diagnosis Please include # weeks suspension Date of Service August 26, 2022 at 19:41 JEISON BARRETO DO 08/27/22 0922: Clinic Account Progress/Dx Physician Query: Date of Service 08/26/22 DIAGNOSIS: Diagnosis IUP @33w2d UTI Cramping NO labor Progress Note: This presents to L&D @33w2d with c/o cramping. She states that she was seen for her OB appt and was told that she had a UTI and was told to pick pulling machine tender a prescription for antibiotics. Pt states that she has yet to complete this task. Pt states that she has been feeling cramping more frequently. FHR reassuring CVX closed (unchanged) Tocos irritability A/P IUP @33w2d UTI Cramping -Please pick pulling machine tender Rx for ATBx and take the course of ATBx completely -Increase PO water intake -Call if increase pain, CTXs or elevated temperature -Keep next OB appt. BRADAugust 27, 2022 08:34 JEISON BARRETO DO August 27, 2022 09:22
== END 2022-08-26 20:28 ==
LOC: LDRP 19:41 → WSo 19:41
PROVIDERS: ATTEND Obstetrics & Gynecology
DX: O47.03 False labor before 37 completed weeks of gestation, third trimester (principal); O23.43 Unspecified infection of urinary tract in pregnancy, third trimester; N39.0 Urinary tract infection, site not specified; Z3A.33 33 weeks gestation of pregnancy
CPT/HCPCS: 99213

== ENCOUNTER 2022-10-02 14:55 | Outpatient (CLI) | payer MEDICAID ==
[~2022-10-02] VITALS: Ht 154.9 cm; Wt 83.4 kg
[2022-10-02 15:12] LABS: BILIRUBIN,URINE NEGATIVE (NEGATIVE); CLARITY,URINE CLEAR; COLOR,URINE YELLOW; GLUCOSE, URINE (UA) NEGATIVE (NEGATIVE); KETONES,URINE 1+ (NEGATIVE); LEUKOCYTE ESTERASE ,URINE NEGATIVE (NEGATIVE); NITRITE,URINE NEGATIVE (NEGATIVE); PROTEIN,URINE NEGATIVE (NEGATIVE)
[2022-10-02 15:16] VITALS: BP 118/84
[2022-10-02 15:20] LABS: AMORPHOUS SEDIMENT,UR FEW AMOR URATES /LPF; BACTERIA,URINE NEGATIVE /HPF; WBC,URINE 0-2 /HPF
--- NOTE | 2022-10-03 09:01 | OB Triage Report ---
Standard Progress Note Progress Notes/Assess & Plan Date Seen by a Provider: Oct 02, 2022 Time Seen by a Provider: 19:00 Expected Date of Delivery: Oct 12, 2022 Gestational Age in Weeks: 38 Gestational Age in Days: 4 LMP/SHEILA Comment: As above Progress/Assessment & Plan @ 38 4/7 weeks gestation presents with complaints of contractions, seen in office and cervix 3 cm dilated there. Denies bleeding of leakage of fluid. On L&D cervix unchanged at 3/60/-2. Category I FHR tracing with no regular contractions noted. Vital signs stable. Released to home with routine labor precautions. Follow up routine OB as scheduled. Final Diagnosis 38 weeks Not in labor REN MO DO Oct 03, 2022 09:01
== END 2022-10-02 16:37 | disposition home or self-care (01) ==
LOC: LDRP 14:55 → WSo 14:55
PROVIDERS: ATTEND Obstetrics & Gynecology
DX: O47.1 False labor at or after 37 completed weeks of gestation (principal); Z3A.38 38 weeks gestation of pregnancy
CPT/HCPCS: 81000

== ENCOUNTER 2022-10-08 07:11 | Inpatient (IN) | payer MEDICAID ==
[2022-10-08] VITALS (44 sets, daily range): BP systolic 92–139; BP diastolic 53–90
[~2022-10-08] VITALS: Ht 156 cm; Wt 88.9 kg
--- NOTE | 2022-10-08 07:26 | History & Physical-OB ---
OB - Chief Complaint & HPI Date/Time Date of Admission: Date of Admission: Oct 08, 2022 at 07:11 Date seen by a Provider: Oct 08, 2022 Time Seen by a Provider: 08:00 Chief Complaint/History OB-Reason for Admission/Chief: Induction of Labor Hx : 3 Hx Para: 2 Expected Date of Delivery: Oct 12, 2022 Gestational Age in Weeks: 39 Gestational Age in Days: 3 Admission Nurse Assessment Rev: Yes History of Labs GBS neg See prenatals Allergies and Home Medications Allergies Coded Allergies: No Known Drug Allergies (Unverified , 05/28/18) Patient Home Medication List Home Medication List Reviewed: Yes Vit W-Ca,Fe,FA(<1 mg) ( Vitamins) 1 Each Tablet, 1 EACH PO DAILY, (Reported) Entered as Reported by: STEVEN CHEEMA on 05/28/18 1120 OB - History Hx of Present Care: Yes Ultrasounds: Normal mid trimester US Obstetrical Complications: None Medical Complications: None Delivery History Adverse Rxn to Tranfusion: No Patient Past Medical History previously healthy Social History/Family History 2nd Hand Smoke Exposure: No Immunizations Tetanus Booster (TDap): Unknown OB - Admission Exam Physical Exam HEENT: NCAT Heart: Rhythm Normal Lungs: Clear Abdomen: Gravid Extremities: Normal Reflexes: Normal Cervical Dilatation: 4cm Effacement: 75% Station: -1 Membranes: Intact Heart Rate: 130's Accelerations: Accelerations Present Decelerations: No Decelerations Short Term Variability: Present Rn Relief Charge Variability: Average (6-25) Contractions on Admission: 6-10 Minutes Apart Intensity: Mild OB - Assessment/Plan/Diagnosis Assessment Assessment: induction of labor Admission Dx 26 yo @ 38 weeks GBS neg Admission Status: Inpatient Order (span 2 midnights) Reason for Inpatient Admission: IOL at 39 weeks Plan Plan: Induction Induction Method: AROM LEANNA BORDEN DO Oct 08, 2022 07:26
[2022-10-08] MEDS ORDERED: OXYTOCIN PRE-MIX DRIP 500 ML IV SCH ×2 (07:30→15:45)
[2022-10-08] MEDS ORDERED: MINERAL OIL 30 ML UDC TOP PRN (08:15)
[2022-10-08] MEDS ORDERED: LIDOCAINE/EPI 2% 1:200,00 (XYLOCAINE) 20 ML VIAL INJ PRN (08:15)
[2022-10-08] MEDS ORDERED: D5 LR IV SOLUTION 1,000 ML IV SCH (08:15)
[2022-10-08 08:36] LABS: BASOPHILS % (AUTO) 0 % (0-10); EOSINOPHILS # (AUTO) 0.1 10^3/uL (0.0-0.3); EOSINOPHILS % (AUTO) 1 % (0-10); HEMATOCRIT 35 % (35-52); HEMOGLOBIN 11.8 g/dL (11.5-16.0); LYMPHOCYTES # (AUTO) 1.9 10^3/uL (1.0-4.0); LYMPHOCYTES % (AUTO) 27 % (12-44); MEAN CORPUSCULAR HEMOGLOBIN 29 pg (25-34); MEAN CORPUSCULAR HGB CONC 34 g/dL (32-36); MEAN CORPUSCULAR VOLUME 87 fL (80-99); MEAN PLATELET VOLUME 10.2 fL (9.0-12.2); MONOCYTES # (AUTO) 0.7 10^3/uL (0.0-1.0); MONOCYTES % (AUTO) 9 % (0-12); NEUTROPHILS # (AUTO) 4.4 10^3/uL (1.8-7.8); NEUTROPHILS % (AUTO) 62 % (42-75); PLATELET COUNT 241 10^3/uL (130-400); WHITE BLOOD COUNT 7.2 10^3/uL (4.3-11.0)
[2022-10-08] MEDS ORDERED: HYDROmorphone 2 MG/ML VIAL (DILAUDID) IV ONE (09:00)
[2022-10-08] MEDS ORDERED: HYDROmorphone 2 MG/ML VIAL (DILAUDID) ONE (09:01)
[2022-10-08] MEDS ORDERED: fentaNYL 2 mcg/ml BUPIVA 0.125 100 ML ONE (09:02)
[2022-10-08] MEDS ORDERED: BUPIVACAINE 0.25% 10 ML (SENSORCAINE) VIAL ONE (09:37)
[2022-10-08] MEDS ORDERED: fentaNYL INJ 100 MCG/2 ML AMP ONE (09:37)
[2022-10-08] MEDS ORDERED: fentaNYL 2 mcg/ml BUPIVA 0.125 100 ML EPI SCH (09:45)
[2022-10-08] MEDS ORDERED: ONDANSETRON 4 MG/2 ML (SDV) Z0FRAN IV PRN (09:45)
[2022-10-08] MEDS ORDERED: NALOXONE 0.4 MG/ML 1 ML (NARCAN) VIAL IV PRN ×2 (09:45→15:45)
[2022-10-08] MEDS ORDERED: LACTATED RINGERS 1,000 ML IV SCH (09:45)
[2022-10-08] MEDS ORDERED: diphenhydrAMINE 50 MG/ML INJ (BENADRYL) IV PRN (09:45)
[2022-10-08] MEDS ORDERED: CATHETER FLUSH 10 ML SYR IV SCH ×2 (14:00→22:00)
--- NOTE | 2022-10-08 15:42 | OB Labor & Delivery Record ---
L&D History Date of Service Date of Service: Oct 08, 2022 History Expected Date of Delivery: Oct 12, 2022 Gestational Age in Weeks: 39 Hx : 3 Hx Para: 2 Complications Events: Routine care Operative Indications (Cesarea: N/A-Vaginal Delivery Intrapartal Events: None L&D Stage1 Stage One Onset of Labor - Date: Oct 08, 2022 Monitors and Tracing Monitor Mode: External Heart Rate: 140 Vital Signs VS - Last 72 Hours, by Label 10/08/22 10/08/22 10/08/22 10/08/22 07:28 08:55 09:10 09:25 Temp 36.8 36.7 Pulse 75 100 71 69 Resp 20 20 20 20 B/P (MAP) 139/90 (106) 113/58 (76) 112/55 (74) Pulse Ox 96 100 100 100 O2 Delivery Room Air Room Air Non Rebreather Non Rebreather 10/08/22 10/08/22 10/08/22 10/08/22 09:40 09:43 09:46 09:50 Pulse 77 79 83 77 Resp 20 20 20 20 B/P (MAP) 114/65 (81) 125/71 (89) 111/71 (84) 111/76 (88) Pulse Ox 100 100 97 96 O2 Delivery Room Air Room Air Room Air Room Air 10/08/22 10/08/22 10/08/22 10/08/22 09:52 09:55 10:00 10:05 Pulse 75 86 88 83 Resp 20 20 20 20 B/P (MAP) 120/73 (89) 113/68 (83) 99/68 (78) 95/55 (68) Pulse Ox 96 96 96 95 O2 Delivery Room Air Room Air Room Air Room Air 10/08/22 10/08/22 10/08/22 10/08/22 10:10 10:15 10:20 10:30 Pulse 85 69 87 86 Resp 20 20 20 20 B/P (MAP) 92/53 (66) 108/63 (78) 107/58 (74) 108/57 (74) Pulse Ox 95 95 95 96 O2 Delivery Room Air Room Air Room Air Room Air 10/08/22 10/08/22 10/08/22 10/08/22 10:50 11:05 11:20 11:30 Pulse 82 70 70 81 Resp 20 20 20 20 B/P (MAP) 123/65 (84) 99/56 (70) 96/58 (71) 93/59 (70) Pulse Ox 96 97 97 97 O2 Delivery Room Air Room Air Room Air Room Air 10/08/22 10/08/22 10/08/22 10/08/22 11:50 12:00 12:15 12:30 Temp 37.0 Pulse 92 79 77 79 Resp 20 20 20 20 B/P (MAP) 104/74 (84) 121/74 (90) 111/72 (85) 111/68 (82) Pulse Ox 98 99 99 99 O2 Delivery Room Air Room Air Room Air Room Air 10/08/22 10/08/22 10/08/22 10/08/22 12:45 13:00 13:18 13:35 Pulse 84 86 96 90 Resp 20 20 20 20 B/P (MAP) 108/66 (80) 104/60 (75) 112/60 (77) 105/61 (76) Pulse Ox 99 97 98 96 O2 Delivery Room Air Room Air Room Air Room Air 10/08/22 10/08/22 10/08/22 13:45 14:00 14:15 Temp 37.2 Pulse 90 89 90 Resp 20 20 20 B/P (MAP) 105/59 (74) 104/57 (73) 107/61 (76) Pulse Ox 96 96 96 O2 Delivery Room Air Room Air Room Air Rupture of Membranes Spontaneous Ruture of Membrane: No Amniotic Membrane Rupture Time: 08 Amniotic Membrane Fluid Desc.: Clear Vaginal Bleeding Description: Normal Show Induction/Anesthesia Epidural Cath Placement - Time: 951 Progress/Notes Patient admitted for elective IOL. AROM performed and pitocin augmentation started. She received an epidural and progressed to complete and + 2 station L&D Stage2 Stage Two Stage II Date: Oct 08, 2022 Monitors and Tracing Monitor Mode: External Heart Rate: 140 Monitor Accelerations: Uniform Monitor Decelerations: Variable Construction Manager Variability: Average (6-10) Short Term Variability: Present Position: Right Occiput Anterior Presentation: Vertex Cord Descript/Complications Cord Vessel Description: 3 Vessels Delivery Type Infant Delivery Method: Spontaneous Vaginal Anterior Shoulder: Right Episiotomy/Perineal Laceration Laceraction(s)/Extensions: No Condition of Delivery Notes Live female weight and apgars pending Condition of Condition of Infant: Living Exam: No Observed Abnormalities Resuscitation Resuscitation: N/A - Spontaneous Resp L&D Stage3 Stage Three Stage III Date: Oct 08, 2022 Pictocin Pitocin Administration mu/min: 6 Pitocin ml/hr: 6 Pitocin Administration Comment: 30 mu wide open after delivery of placenta Placenta Delivery Placenta Delivery: Spontaneous Delivery Summary Summary Estimated blood loss (mL): 200 Attending at delivery: Leanna Borden DO Condition of Delivery Examined: Cervix Examined, Uterus Explored Post Hemorrhage: No Condition of Mother stable Condition of Infant (s) stable LEANNA BORDEN DO Oct 08, 2022 15:42
--- NOTE | 2022-10-08 15:44 | Discharge Inst-Women's Service ---
Discharge Inst-Women's Serv Depart Medication/Instructions New, Converted or Re-Newed RX: Transmitted to Pharmacy Final Diagnosis PPD 1 NVD Problems Reviewed?: Yes Consults/Follow Up Additional Follow Up: Yes Orders/Referrals Dr. Borden/Evan in 6 weeks Activity Activity: Activity as Tolerated Driving Instructions: No Driving for 1 Week NO SMOKING: NO SMOKING Nothing Inside Vagina: No Douching, No Sexton, No Tampons Diet Discharge Diet: No Restrictions Symptoms to Report to : Bleeding Excessive, Pain Increased, Fever Over 101 Degrees F, Vaginal Bleeding Increase, Questions/Concerns For Any Problems or Questions: Contact Your Physician LEANNA BORDEN DO Oct 08, 2022 15:44
[2022-10-08] MEDS ORDERED: MEASLES,MUMPS,RUBELLA 1 EA INJ SQ ONE (15:45)
[2022-10-08] MEDS ORDERED: BENZOCAINE/MENTHOL (DERMOPLAST) 56 ML CAN TP PRN (15:45)
[2022-10-08] MEDS ORDERED: TETANUS,DIPTH,PERTUSS P/F (BOOSTRIX) 0.5 ML VIAL IM ONE (15:45)
[2022-10-08] MEDS ORDERED: WITCH HAZEL(TUCKS) 40 EA JAR TOP PRN (15:45)
[2022-10-08] MEDS ORDERED: ACET-93 PO (15:53)
[2022-10-08] MEDS ORDERED: FERR325T24 PO (15:53)
[2022-10-08] MEDS ORDERED: IBUP-844 PO (15:53)
[2022-10-08] MEDS ORDERED: DOCU100C37 PO (15:53)
[2022-10-08] MEDS: IBUPROFEN 600 MG (MOTRIN) TAB PO SCH ×2 (16:07→21:43)
[2022-10-08] MEDS: ACETAMINOPHEN 500 MG TAB (TYLENOL) PO PRN ×2 (16:07→21:43)
[2022-10-08] MEDS: DOCUSATE SODIUM 100 MG (COLACE) CAP PO SCH (21:42)
[2022-10-09 03:27] VITALS: BP 119/64
[2022-10-09] MEDS: ACETAMINOPHEN 500 MG TAB (TYLENOL) PO PRN ×2 (03:27→14:30)
[2022-10-09] MEDS: IBUPROFEN 600 MG (MOTRIN) TAB PO SCH ×2 (03:27→11:45)
[2022-10-09 06:20] LABS: BASOPHILS % (AUTO) 0 % (0-10); EOSINOPHILS # (AUTO) 0.2 10^3/uL (0.0-0.3); EOSINOPHILS % (AUTO) 2 % (0-10); HEMATOCRIT 32 % (35-52); HEMOGLOBIN 10.8 g/dL (11.5-16.0); LYMPHOCYTES # (AUTO) 2.3 10^3/uL (1.0-4.0); LYMPHOCYTES % (AUTO) 23 % (12-44); MEAN CORPUSCULAR HEMOGLOBIN 30 pg (25-34); MEAN CORPUSCULAR HGB CONC 34 g/dL (32-36); MEAN CORPUSCULAR VOLUME 88 fL (80-99); MEAN PLATELET VOLUME 10.8 fL (9.0-12.2); MONOCYTES # (AUTO) 0.7 10^3/uL (0.0-1.0); MONOCYTES % (AUTO) 7 % (0-12); NEUTROPHILS # (AUTO) 6.8 10^3/uL (1.8-7.8); NEUTROPHILS % (AUTO) 68 % (42-75); PLATELET COUNT 205 10^3/uL (130-400)
[2022-10-09 06:45] VITALS: BP_SYST 103; BP_SYST 120; BP_DIAS 53; BP_DIAS 58
--- NOTE | 2022-10-09 08:11 | Postpartum Progress Note ---
Note Note Day # 1 Subjective: Patient is without complaints. Ambulating, voiding. Tolerating a regular diet without nausea or vomiting. Normal lochia. Pain is well controlled with oral pain medications. Objective: Physical Exam: General - Alert and oriented, no apparent distress Abdomen - Soft, appropriately tender to palpation, non-distended, fundus firm at umbilicus Extremities - no edema, negative Belem's bilaterally Assessment: PPD 1 NVD Plan: Routine care. Encourage breast feeding. Encourage ambulation. Ferrous sulfate supplementation. Plan for discharge today Vitals - Labs Vital Signs - I&O Vital Signs Date Time Temp Pulse Resp B/P (MAP) Pulse Ox O2 Delivery O2 Flow Rate FiO2 10/09/22 06:45 36.3 72 18 103/58 (73) 96 Room Air 10/09/22 03:27 36.4 72 18 119/64 (82) 97 Room Air 10/08/22 21:44 36.5 68 18 117/58 (77) 97 Room Air 10/08/22 18:30 83 20 104/57 (73) Room Air 10/08/22 17:30 37.1 85 20 119/62 (81) Room Air 10/08/22 17:00 37.0 80 20 108/69 (82) Room Air 10/08/22 16:45 70 20 113/75 (88) Room Air 10/08/22 16:30 84 20 120/68 (85) Room Air 10/08/22 16:15 37.3 91 20 117/68 (84) Room Air 10/08/22 16:00 37.4 93 20 108/69 (82) Room Air 10/08/22 15:45 37.5 93 20 111/56 (74) Room Air 10/08/22 15:32 37.8 83 20 127/66 (86) 98 Room Air 10/08/22 15:20 98 20 123/90 (101) 97 Room Air 10/08/22 15:00 99 20 114/73 (87) 97 Room Air 10/08/22 14:48 82 20 114/70 (85) 99 Room Air 10/08/22 14:15 37.2 90 20 107/61 (76) 96 Room Air 10/08/22 14:00 89 20 104/57 (73) 96 Room Air 10/08/22 13:45 90 20 105/59 (74) 96 Room Air 10/08/22 13:35 90 20 105/61 (76) 96 Room Air 10/08/22 13:18 96 20 112/60 (77) 98 Room Air 10/08/22 13:00 86 20 104/60 (75) 97 Room Air 10/08/22 12:45 84 20 108/66 (80) 99 Room Air 10/08/22 12:30 37.0 79 20 111/68 (82) 99 Room Air 10/08/22 12:15 77 20 111/72 (85) 99 Room Air 10/08/22 12:00 79 20 121/74 (90) 99 Room Air 10/08/22 11:50 92 20 104/74 (84) 98 Room Air 10/08/22 11:30 81 20 93/59 (70) 97 Room Air 10/08/22 11:20 70 20 96/58 (71) 97 Room Air 10/08/22 11:05 70 20 99/56 (70) 97 Room Air 10/08/22 10:50 82 20 123/65 (84) 96 Room Air 10/08/22 10:30 86 20 108/57 (74) 96 Room Air 10/08/22 10:20 87 20 107/58 (74) 95 Room Air 10/08/22 10:15 69 20 108/63 (78) 95 Room Air 10/08/22 10:10 85 20 92/53 (66) 95 Room Air 10/08/22 10:05 83 20 95/55 (68) 95 Room Air 10/08/22 10:00 88 20 99/68 (78) 96 Room Air 10/08/22 09:55 86 20 113/68 (83) 96 Room Air 10/08/22 09:52 75 20 120/73 (89) 96 Room Air 10/08/22 09:50 77 20 111/76 (88) 96 Room Air 10/08/22 09:46 83 20 111/71 (84) 97 Room Air 10/08/22 09:43 79 20 125/71 (89) 100 Room Air 10/08/22 09:40 77 20 114/65 (81) 100 Room Air 10/08/22 09:25 69 20 112/55 (74) 100 Non Rebreather 10/08/22 09:10 71 20 113/58 (76) 100 Non Rebreather 10/08/22 08:55 36.7 100 20 139/90 (106) 100 Room Air I & O 10/09/22 07:00 Intake Total 1000 ml Balance 1000 ml Labs Laboratory Tests 10/08/22 08:25: White Blood Count 7.2, Red Blood Count 4.01, Hemoglobin 11.8, Hematocrit 35, Mean Corpuscular Volume 87, Mean Corpuscular Hemoglobin 29, Mean Corpuscular Hemoglobin Concent 34, Red Cell Distribution Width 13.2, Platelet Count 241, Mean Platelet Volume 10.2, Immature Granulocyte % (Auto) 0, Neutrophils (%) (Auto) 62, Lymphocytes (%) (Auto) 27, Monocytes (%) (Auto) 9, Eosinophils (%) (Auto) 1, Basophils (%) (Auto) 0, Neutrophils # (Auto) 4.4, Lymphocytes # (Auto) 1.9, Monocytes # (Auto) 0.7, Eosinophils # (Auto) 0.1, Basophils # (Auto) 0.0, Immature Granulocyte # (Auto) 0.0, Syphilis Total Antibody Negative 10/09/22 05:25: White Blood Count 10.0, Red Blood Count 3.65L, Hemoglobin 10.8L, Hematocrit 32L, Mean Corpuscular Volume 88, Mean Corpuscular Hemoglobin 30, Mean Corpuscular Hemoglobin Concent 34, Red Cell Distribution Width 13.2, Platelet Count 205, Mean Platelet Volume 10.8, Immature Granulocyte % (Auto) 0, Neutrophils (%) (Auto) 68, Lymphocytes (%) (Auto) 23, Monocytes (%) (Auto) 7, Eosinophils (%) (Auto) 2, Basophils (%) (Auto) 0, Neutrophils # (Auto) 6.8, Lymphocytes # (Auto) 2.3, Monocytes # (Auto) 0.7, Eosinophils # (Auto) 0.2, Basophils # (Auto) 0.0, Immature Granulocyte # (Auto) 0.0 LEANNA BORDEN DO Oct 09, 2022 08:11
--- NOTE | 2022-10-09 08:29 | Anesthesia-Regional Post-Op ---
Regional Patient Condition Mental Status: Alert, Oriented x3 Circulation: Same as Pre-Op Headache: Absent Sensation: Full Recovery Motor Block: Absent Post Op Complications Complications None Follow Up Care/Instructions Patient Instructions None needed. Anesthesia/Patient Condition Patient is doing well, no complaints, stable vital signs, no apparent adverse anesthesia problems. No complications reported per nursing. D/C home per [facility] [place] Criteria: Yes REN VANEGAS CRNA Oct 09, 2022 08:29
[2022-10-09] MEDS ORDERED: FERROUS SULF 325 MG (IRON) TAB PO SCH (09:00)
[2022-10-09 11:45] VITALS: BP 108/57
[2022-10-09] MEDS: DOCUSATE SODIUM 100 MG (COLACE) CAP PO SCH (11:45)
[2022-10-09 14:32] VITALS: BP 118/69
== END 2022-10-09 18:10 | disposition home or self-care (01) | DRG 807 ==
LOC: LDRP 07:11
PROVIDERS: ADMIT Obstetrics & Gynecology; ATTEND Obstetrics & Gynecology
PROC: 10E0XZZ Delivery of Products of Conception, External Approach (ICD-10-PCS; principal; 2022-10-08)
PROC: 10907ZC Drainage of Amniotic Fluid, Therapeutic from Products of Conception, Via Natural or Artificial Opening (ICD-10-PCS; 2022-10-08)
DX: O80 Encounter for full-term uncomplicated delivery (principal); Z37.0 Single live birth; Z3A.39 39 weeks gestation of pregnancy
CPT/HCPCS: 36415; 85025; 86780; 86850; 86900; 86901; 93005